=== PATIENT | female | born 1980 | race Caucasian/White ===

== ENCOUNTER 2017-08-14 10:39 | Emergency (ER) | payer MEDICAID ==
[~2017-08-14] VITALS: Ht 157.5 cm; Wt 77.6 kg
[2017-08-14 11:21] VITALS: Ht 157.5 cm; Wt 77.6 kg
[2017-08-14 14:22] VITALS: BP 97/61
== END 2017-08-14 14:22 | disposition home or self-care (01) ==
LOC: ED 10:39
DX: S09.90XA Unspecified injury of head, initial encounter (principal); W18.39XA Other fall on same level, initial encounter; Y93.89 Activity, other specified; Y92.89 Other specified places as the place of occurrence of the external cause; Y99.8 Other external cause status